=== PATIENT | male | born 1990 | race Two or more races ===

== ENCOUNTER 2024-10-02 14:30 | Emergency (ER) | payer OTHER ==
[~2024-10-02] VITALS: Ht 172.7 cm; Wt 68.0 kg
[2024-10-02] MEDS ORDERED: CITALOPRAM HBR20 MG PO (15:33)
[2024-10-02] MEDS ORDERED: DEPAKOTE ER500 MG PO (15:33)
[2024-10-02] MEDS ORDERED: CLONAZEPAM0.5 M1 PO (15:34)
[2024-10-02] MEDS ORDERED: RISPERDAL1 MG (15:34)
[2024-10-02] MEDS ORDERED: 0.9 % SODIUM CHLORIDE 250 ML IV SCH (16:45)
[2024-10-02] MEDS ORDERED: PROPOFOL 10 MG/1 ML VIAL 50ML IV ONE (16:45)
[2024-10-02] MEDS ORDERED: MORPHINE SULFATE 2 MG/ML SYRINGE IV ONE (16:45)
[2024-10-02] MEDS ORDERED: NORFLEX100MG PO (19:04)
[2024-10-02] MEDS ORDERED: PEPCID AC20 MG PO (19:10)
[2024-10-02] MEDS ORDERED: CEFUROXIME500 MG PO (19:10)
== END 2024-10-02 20:09 | disposition home or self-care (01) ==
LOC: ER 14:30
DX: S43.084A Other dislocation of right shoulder joint, initial encounter (principal); W18.39XA Other fall on same level, initial encounter; Y93.89 Activity, other specified; Y92.89 Other specified places as the place of occurrence of the external cause; F41.8 Other specified anxiety disorders

== ENCOUNTER 2024-10-04 22:54 | Emergency (ER) | payer OTHER ==
[~2024-10-04] VITALS: Ht 172.7 cm; Wt 68.0 kg
[~2024-10-04 22:54] MED LIST: CEFUROXIME500 MG PO; CITALOPRAM HBR20 MG PO; CLONAZEPAM0.5 M1 PO; DEPAKOTE ER500 MG PO; NORFLEX100MG PO; PEPCID AC20 MG PO; RISPERDAL1 MG
[2024-10-05] MEDS ORDERED: KETOROLAC TROMETHAMINE 30 MG VIAL IV STA (00:20)
[2024-10-05] MEDS ORDERED: TRAMADOL HCL 50 MG TABLET PO STA (00:21)
[2024-10-05] MEDS ORDERED: MIDAZOLAM HCL 2 MG/2 ML VIAL IV STA (01:37)
[2024-10-05] MEDS ORDERED: PROPOFOL 10,000 MCG/ML VIAL IV STA (01:37)
[2024-10-05] MEDS ORDERED: FLUMAZENIL 0.5 MG/5 ML ML IV STA (01:38)
== END 2024-10-05 02:38 | disposition home or self-care (01) ==
LOC: ER 23:06
DX: M24.411 Recurrent dislocation, right shoulder (principal)